=== PATIENT | male | born 1980 | race Caucasian/White ===

== ENCOUNTER 2018-11-27 22:52 | Inpatient (IN) | payer OTHER ==
[2018-11-27] MEDS ORDERED: Lorazepam 2 MG/ML VIAL ONE (23:18)
[2018-11-27 23:48] LABS: Prothrombin Time 13.3 SEC (12.0-14.7)
[2018-11-27 23:49] LABS: PTT 28.2 SEC (22.9-36.1)
[2018-11-28 00:04] LABS: ALT (SGPT) 208 U/L (8-55); AST (SGOT) 206 U/L (5-34); Albumin 3.8 g/dL (3.5-5.0); Alkaline Phosphatase 80 U/L (40-150); Anion Gap 21 mmol/L (10-20); BUN (Urea Nitrogen) 23 mg/dL (8.9-20.6); Bilirubin, Direct 4.7 mg/dL (0.1-0.3); Bilirubin, Total 6.1 mg/dL (0.2-1.2); Calc. Creatinine Clearance 0 mL/min (70-130); Carbon Dioxide 21 mmol/L (22-29); Chloride 77 mmol/L (98-107); Estimated GFR-MDRD Greater than 90; Glucose 104 mg/dL (70-105); Potassium 3.2 mmol/L (3.5-5.1); Protein, Total 5.9 g/dL (6.0-8.3)
--- NOTE | 2018-11-28 00:04 | CT ---
CT Chest WO Con History: Chest pain Comparison: None. Findings: Numerous small centrilobular nodules throughout the upper lobes. There are also some patchy groundglass opacities within the lingula and anterior segment left lower lobe. No pneumothorax. No significant effusion. Sternum and manubrium are intact. Spine is intact. Healing right lateral 6 rib fracture. Relatively acute-appearing right posterior ninth rib fracture with one cortex width displacement. Healing right posterior 10th rib fracture. Poorly healing right application assistant ior 11th rib fracture. Left posterior 11th rib fracture appears relatively acute. Cortical cysts left anterior third rib. Diffuse hepatic steatosis. There is contrast within the renal collecting systems. Abnormal thickening left adrenal gland. Impression: 1. Diffuse upper lobe predominant centrilobular small nodules as well as groundglass opacities within both lower lobes. Findings can be seen with hypersensitivity pneumonitis, respiratory bronchiolitis, and endobronchial spread of atypical infection. Bronchoscopy may be helpful. 2. Multiple bilateral rib fractures in different stages of healing. 3. Thickened left adrenal gland. Recommend correlation with recent abdominal imaging.
[2018-11-28 00:07] LABS: Sodium 116 mmol/L (136-145)
[2018-11-28] MEDS ORDERED: Ondansetron PF 4 MG/2 ML Vial ONE (00:52)
[2018-11-28] MEDS ORDERED: Morphine 4 MG/ML VIAL ONE (00:52)
[2018-11-28] MEDS ORDERED: cefTRIAXone\\ROCEPHIN 1 GM VIAL ONE (00:53)
[2018-11-28] MEDS ORDERED: Azithromycin 500 MG VIAL ONE (01:40)
[2018-11-28 02:14] LABS: Bilirubin 1+ (Negative); Blood, Urine Negative (Negative); Clarity Clear (Clear); Glucose, Urine (Dipstick) Normal (Negative); Leukocyte Negative Leu/uL (Negative); Nitrite Negative (Negative); Protein, Urine (Dipstick) 20 mg/dL (Neg-Trace)
--- NOTE | 2018-11-28 03:57 | HP ---
PRIMARY CARE PHYSICIAN: [facility] Call admission. REASON FOR ADMISSION: Transferred from [facility] after alcohol intoxication, alcohol withdrawal, aspiration pneumonia and electrolyte abnormality. HISTORY OF PRESENT ILLNESS: This is a 38-year-old male who has chronic alcoholism, who initially went to [facility] for alcohol intoxication/withdrawal symptoms. The patient reports that about 2 weeks ago, he had violent sneezing and coughing spell. At that time, he heard a popping sound from his ribcage. Since then, he was having chest wall pain as well as back pain that was the main reason he went to [facility]. Since then, the patient is also having intermittent cough. He was having low-grade fever. He continues to drink hard liquor every day. He has chronic alcohol abuse secondary to depression and lately his alcohol drinking significantly increased since he is from his . He denies any abdominal pain, melena, hematochezia, or hematemesis. He is feeling nausea and occasional vomiting. He denies any fall, injury, or trauma. He has never had any seizure. The patient was given 1 mg Ativan as well as banana bag at [facility] and subsequently, he was transferred here for further evaluation. In our emergency room, the patient had CT chest, which showed diffuse upper lobe predominant centrilobular small nodule as well as ground-glass opacity within both lower lobes suspicious for hypersensitivity pneumonitis versus aspiration as well as multiple bilateral rib fractures noted. The patient received Rocephin and azithromycin in our emergency room. He was given morphine and Ativan as well as IV fluid. His routine blood test showed severe hyponatremia and hypokalemia. PAST MEDICAL HISTORY: Chronic alcoholism. PAST PSYCHIATRIC HISTORY: Anxiety and depression. PAST SURGICAL HISTORY: Reviewed and negative. SOCIAL HISTORY: The patient is drinking more than 10 drinks per day. He drinks hard liquor. He also smokes half pack per day. He has alcoholism history for last 5 years. 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 He is from his recently. FAMILY HISTORY: No family history of coronary artery disease, stroke, or cancer. ALLERGIES: NO KNOWN DRUG ALLERGIES. CURRENT HOME MEDICATIONS: The patient was not taking any prescribed or non-prescribed medication. EMERGENCY ROOM COURSE: The patient was given banana bag at [facility]. He was given Ativan 1 mg and here in our emergency room, the patient received Rocephin, azithromycin, morphine, Ativan, and IV fluid. REVIEW OF SYSTEMS: CONSTITUTIONAL: Negative for weight loss or gain, ability to conduct usual activities. SKIN: Negative for rash, itching. EYES: Negative for double vision, pain. ENT/MOUTH: Negative for nose bleeding, neck stiffness, pain, tenderness. CARDIOVASCULAR: Negative for palpitations, dyspnea on exertion, orthopnea. RESPIRATORY: Negative for shortness of breath, wheezing, cough, hemoptysis, fever or night sweats. GASTROINTESTINAL: Negative for poor appetite, heartburn, vomiting, constipation , or diarrhea. GENITOURINARY: Negative for urgency, frequency, dysuria, nocturia. MUSCULOSKELETAL: Negative for pain, swelling. NEUROLOGIC/PSYCHIATRIC: Negative for anxiety, depression. ALLERGY/IMMUNOLOGIC: Negative for skin rash, bleeding tendency. Please see my HPI for pertinent positive and negative. All other review of systems reviewed and negative, except as mentioned in the HPI. PHYSICAL EXAMINATION: VITAL SIGNS: Currently, blood pressure 144/90, pulse 120, respiratory rate 26, temperature 98.9 and saturation 98% on room air. Weight 90.7 kg. GENERAL: The patient is currently alert, awake, in no obvious acute distress. HEENT: Head; normocephalic, atraumatic. Eyes; pupils are round, reactive to light. Extraocular muscle intake. ENT, dry mucous membrane. Lip cracked. No pharyngeal erythema. No exudate. NECK: Supple. No JVD. No thyromegaly. No carotid bruit. No meningeal signs of irritation. LUNGS: The patient does have reduced air entry basally. Unable to elicit any rales. No wheezing. No accessory muscles of respiration. The patient does have tenderness to bilateral chest wall. CARDIAC: S1-S2 regular, tachycardia. No murmur. No gallop. No rub. ABDOMEN: Soft. Mild discomfort noted in the right upper quadrant. No peritoneal sign. No ascites. No guarding. No rigidity. No rebound. No suprapubic discomfort. BACK: No point tenderness. No CVA tenderness. EXTREMITIES: Upper extremity, passive movement of all joints are normal. Lower extremity, no edema. Good distal pulsation. SKIN: No skin rash. HEMATOLOGICAL: No lymphadenopathy. NEUROLOGIC: Nonfocal examination. He moves all 4 limbs. His speech is clear. He does not have any motor weakness or sensory deficit. Cerebellar signs are currently normal. Mild tremor noted. PSYCHIATRIC: Normal affect. SIGNIFICANT LABORATORY DATA: waste elimination showing sinus tachycardia. [facility] record reviewed. INR 1.0. LFTs; bilirubin 6.1, direct bilirubin 4.7, protein 5.9, albumin 3.8, alkaline phosphatase 80, AST 206, ALT 208, potassium 3.2, chloride 77, carbon dioxide 21, anion gap 21, BUN 23, creatinine 0.76, glucose 104, calcium 8.0. Sodium 116. CT chest done, which is showing diffuse upper lobe predominant centrilobular small nodules as well as ground glass opacity within both lower lobes. Multiple bilateral rib fracture, weakened left adrenal gland. Serum osmolality 264. Urinalysis unremarkable. Urine sodium less than 20. Urine osmolality 734. ASSESSMENT AND PLAN: 1. Acute alcohol intoxication with history of chronic alcoholism. The patient has chronic alcoholism for last 5 years and he is a heavy drinker lately. He is at high risk for alcohol withdrawal syndrome. The patient is admitted for detoxication. We will use ASE protocol orders. We will use Ativan p.o. or IV as needed basis for his anxiety and restlessness. We will continue banana bag. We will provide supportive care and replace electrolyte accordingly. 2. Electrolyte abnormality. The patient has hyponatremia that is related with beer potomania. He has hypokalemia. We will also check magnesium and phosphorus tomorrow. We will replace potassium 10 mEq IV q.8 hourly. The patient is receiving banana bag and we will monitor sodium. Nephrology has been consulted. 3. Anion gap acidosis likely due to his alcohol abuse. 4. Abnormal LFTs, likely due to alcoholism. Ultrasound right upper quadrant will be obtained. 5. Anxiety and depression. We will start antidepression medication while in the hospital. 6. Abnormal CT chest finding. This patient has bibasilar ground-glass opacity and nodular opacity suspected for aspiration pneumonia. Hypersensitivity pneumonitis is possible. We will consult mixer operator helper hot metal for their opinion and we will treat with Zosyn q.6h. 7. Multiple bilateral rib fractures. Pain will be controlled with pain medication. Incentive spirometry advised. 8. Deep venous thrombosis prophylaxis with Lovenox 40 mg subcutaneous daily. If platelet count drops, then we will discontinue Lovenox. 9. Gastrointestinal prophylaxis, Pepcid 20 mg p.o. or IV b.i.d. CODE STATUS: The patient is full code. The patient's mother is surrogate decision maker. DISPOSITION PLAN: Based on clinical course, we are expecting the patient's stay in hospital more than 2 midnights. Plan of care discussed with the patient and mother in detail. Job ID: [id number] MTDD
[2018-11-28] MEDS ORDERED: Loperamide HCl 2 MG CAP PO PRN (04:05)
[2018-11-28] MEDS ORDERED: Ondansetron ODT 4 MG TAB PO PRN (04:05)
[2018-11-28] MEDS ORDERED: Ondansetron PF 4 MG/2 ML Vial IVP PRN (04:05)
[2018-11-28] MEDS ORDERED: Acetaminophen 325 MG TAB PO PRN (04:05)
[2018-11-28] MEDS ORDERED: Calcium Carbonate 500 MG ChewTAB PO PRN (04:05)
[2018-11-28] MEDS ORDERED: Lorazepam 2 MG/ML VIAL SLOW IVP PRN (04:05)
[2018-11-28] MEDS ORDERED: Senokot S 8.6-50 MG TAB PO PRN (04:05)
[2018-11-28] MEDS ORDERED: HYDROcodone/Acetaminophen 5/325 mg Tablet PO PRN (04:05)
[2018-11-28] MEDS ORDERED: Zolpidem Tartrate 5 MG TAB PO PRN (04:05)
[2018-11-28] MEDS ORDERED: Bisacodyl 10 MG SUPP PR PRN (04:05)
[2018-11-28] MEDS: Potassium Chloride 10 MEQ in Premix Bag 1 BAG IVPB SCH ×3 (04:24→22:39)
[2018-11-28] MEDS: Piperacillin/Tazobactam 3.375 GM in Sodium Chloride 0.9% 100 ML IVPB SCH ×4 (05:46→23:39)
[2018-11-28 05:59] VITALS: BMI 27.1
[2018-11-28] MEDS ORDERED: Multivitamins, Adult 10 ML, Folic Acid 1 MG, Thiamine HCl 100 MG in Dextrose 5 %-0.45 %... IV SCH (06:00)
--- NOTE | 2018-11-28 07:35 | ULT ---
PRELIMINARY REPORT/[facility]/AFTER HOURS PROCEDURE EXAM: US Abdomen Limited, Right Upper Quadrant EXAM DATE/TIME: 11/28/2018 2:18 AM CLINICAL HISTORY: 38 years old, male; Nausea and vomiting; Abdominal pain; Other: Epigastric pain that radiates to back TECHNIQUE: Imaging protocol: Real-time ultrasound of the abdomen with image documentation. Examination was focused on the right upper quadrant. COMPARISON: No relevant prior studies available. FINDINGS: Liver: Hepatic steatosis and hepatomegaly. Gallbladder: Gallbladder distended with sludge. No gallbladder wall thickening or pericholecystic fluid. Sonographic Michaud sign negative. Common bile duct: Normal. No stones. No dilation. Pancreas: Visualized pancreas is unremarkable. Right kidney: Normal. No mass. No hydronephrosis. IMPRESSION: 1. Hepatic steatosis and hepatomegaly. 2. Gallbladder distended with sludge. No evidence of cholecystitis. Thank you for allowing us to participate in the care of your patient. Dictated and Authenticated by: Reynold Pearson MD 11/28/2018 3:16 AM Central Time ([place] & [place]) FINAL REPORT RIGHT UPPER QUADRANT ULTRASOUND: 11/28/2018 2:20 a.m. FINDINGS: Hepatomegaly with coarse increased liver echogenicity, evidence for fatty change. Distended gallblad polina with sludge without overt gallstones. Normal common bile duct. Negative Michaud sign. This report is in agreement with the preliminary report. CODE QA Transcribed Date/Time: 11/28/2018 8:29 AM
[2018-11-28] MEDS: Famotidine 20 MG TAB PO SCH ×2 (08:21→22:00)
[2018-11-28] MEDS: Enoxaparin Sodium 40 MG/0.4 ML SYRINGE SC SCH (08:21)
[2018-11-28 10:31] LABS: ALT (SGPT) 198 U/L (8-55); AST (SGOT) 201 U/L (5-34); Albumin 3.6 g/dL (3.5-5.0); Alkaline Phosphatase 72 U/L (40-150); Anion Gap 17 mmol/L (10-20); BUN (Urea Nitrogen) 17 mg/dL (8.9-20.6); Bilirubin, Total 5.3 mg/dL (0.2-1.2); Calc. Creatinine Clearance 154 mL/min (70-130); Calcium 8.4 mg/dL (7.8-10.44); Carbon Dioxide 27 mmol/L (22-29); Chloride 79 mmol/L (98-107); Estimated GFR-MDRD Greater than 90; Globulin 1.9 g/dL (2.4-3.5); Glucose 126 mg/dL (70-105); Potassium 3.2 mmol/L (3.5-5.1); Protein, Total 5.5 g/dL (6.0-8.3); Sodium 120 mmol/L (136-145)
--- NOTE | 2018-11-28 10:52 | PDOC.HOSPP ---
- Subjective Encounter Date: 11/28/18 Encounter Time: 10:51 Subjective: Mr. Schulz was seen today in follow-up of alcohol intoxication and hyponatremia. He is awake and alert. He does not have any complaints. - Objective Vital Signs & Weight: Vital Signs (12 hours) Temp Pulse Resp BP Pulse Ox 11/28/18 07:59 98.2 F 110 H 20 135/78 96 11/28/18 04:05 98.1 F 107 H 20 149/85 H 98 Weight Weight 200 lb Result Diagrams: 11/28/18 09:55 Hospitalist ROS - Medication Medications: Active Medications Generic Name Dose Route Start Last Admin Trade Name Freq PRN Reason Stop Dose Admin Enoxaparin Sodium 40 mg 11/28/18 09:00 11/28/18 08:21 Lovenox SC 40 mg 0900 ELSA Administration Famotidine 20 mg 11/28/18 09:00 11/28/18 08:21 Pepcid PO 20 mg BID ELSA Administration Multivitamins 10 ml/ Folic 1,011.2 mls @ 125 mls/hr 11/28/18 06:00 11/28/18 05:49 Acid 1 mg/ Thiamine HCl 100 mg IV 1,011.2 mls / Dextrose/Sodium Chloride Q24HR ELSA Administration Piperacillin Sod/Tazobactam 100 mls @ 200 mls/hr 11/28/18 06:00 11/28/18 05: 46 Sod 3.375 gm/ Sodium Chloride IVPB 100 mls Q6HR ELSA Administration Potassium Chloride 10 meq/ 100 mls @ 100 mls/hr 11/28/18 06:00 11/28/18 04:24 Device IVPB 100 mls Q8HR ELSA Administration Lorazepam 1 mg 11/28/18 04:05 11/28/18 08:21 Ativan SLOW IVP 1 mg Q4H PRN Administration Anxiety/Agitation Sodium Chloride 10 ml 11/28/18 09:00 11/28/18 08:23 Flush - Normal Saline IVF 10 ml Q12HR ELSA Administration - Exam Eye: PERRL, scleral icterus Heart: RRR, no murmur, no gallops, no rubs, normal peripheral pulses Respiratory: CTAB, no wheezes, no rales, no ronchi, normal chest expansion, no tachypnea, normal percussion Gastrointestinal: soft, non-tender, non-distended, normal bowel sounds, no palpable masses, no hepatomegaly Extremities: no cyanosis, no clubbing, no edema Psychiatric: normal affect, normal behavior, A&O x 3 Hosp A/P (1) Hyponatremia Code(s): E87.1 - HYPO-OSMOLALITY AND HYPONATREMIA Status: Acute (2) Alcohol withdrawal Code(s): F10.239 - ALCOHOL DEPENDENCE WITH WITHDRAWAL, UNSPECIFIED Status: Acute (3) Alcohol abuse Code(s): F10.10 - ALCOHOL ABUSE, UNCOMPLICATED Status: Chronic (4) Alcoholic hepatitis Code(s): K70.10 - ALCOHOLIC HEPATITIS WITHOUT ASCITES Status: Acute (5) Hypokalemia Code(s): E87.6 - HYPOKALEMIA Status: Acute - Plan * Hyponatremia- likely due to beer potomania- continue Banana bag- serum, sodium is up to m120. * Nephrology has been consulted * Alcohol abuse- brief counseling was provided, and will consult case management to give him some information regarding outpatient programs * Withdrawal - mild for now- continue ASE protocol * Hypokalemia- nutritional- continue to replace
[2018-11-28] MEDS ORDERED: Potassium Chloride 20 MEQ TAB PO SCH (11:00)
--- NOTE | 2018-11-28 12:54 | CON ---
DATE OF CONSULTATION: 11/28/2018 CONSULTING PHYSICIAN: Hospitalist Group. REASON FOR CONSULTATION: Abnormal CT scan. HISTORY OF PRESENT ILLNESS: Mr. Schulz is a 38-year-old male who came in last night wanting to be detoxed from alcohol. He has basically missed the last 2 weeks of work because he has been on an alcohol binge. He has had episodes of vomiting. He has had low-grade fever for reasons that are unclear to me. He underwent a CT of the chest last night, which showed some upper lobe ground-glass opacities, which are very faint. The radiologist put in a differential diagnosis hypersensitive pneumonitis versus aspiration pneumonia. He also noted bilateral rib fractures in various stages of healing. The patient complains of some pain posteriorly. He does not know how he fractured the ribs. He says his best guess is he probably "sneezed." PAST MEDICAL HISTORY: Alcoholism. PAST SURGICAL HISTORY: Unremarkable. PSYCHIATRIC HISTORY: Remarkable for anxiety and depression. SOCIAL HISTORY: Drinks 5 to 10 drinks per day, usually vodka. Smokes three quarters pack of cigarettes per day. Does not use illicit drugs. 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 He is from his . FAMILY MEDICAL HISTORY: Unremarkable. ALLERGIES: NONE. MEDICATIONS: Prior to admission, no prescription medications. REVIEW OF SYSTEMS: Essentially negative, except for alcohol withdrawal symptoms and cough. PHYSICAL EXAMINATION: VITAL SIGNS: Temperature 98.2, pulse 110, respirations 20, O2 saturation 96% on room air, blood pressure 135/78. GENERAL: The patient looks chronically ill, but in no respiratory distress. HEENT: Sclerae appear icteric. Oropharynx clear. NECK: No adenopathy. No JVD. LUNGS: Slightly diminished breath sounds. There are some crackles in both bases. He has tenderness to palpation posteriorly left and right. CARDIAC: S1 and S2. Slightly tachycardic. ABDOMEN: Soft. I cannot palpate his liver. Spleen is not palpable. EXTREMITIES: No edema. LABORATORY DATA: Sodium 120, potassium 3.2, chloride 79, CO2 of 27, BUN 17, creatinine 0.8, glucose 126. Serum osmolality was 264, total bilirubin 5.3, AST 201, ALT 198, albumin 3.6. INR 1.0, PTT 28.2. Urinalysis demonstrated ketones. IMAGING STUDIES: CT was reviewed in detail. ASSESSMENT: 1. The ground-glass densities in the CT scan likely represent previous aspiration pneumonitis. I do not suspect this is hypersensitivity pneumonitis. 2. Rib fractures-the patient cannot explain these, but I would guess he has probably been falling. The fractures look old on CT scan. 3. Hyponatremia, hypokalemia. 4. Alcoholic hepatitis. RECOMMENDATIONS: 1. Manage alcohol withdrawal symptoms. 2. Continue antibiotics. Probably needs about 7 days of antibiotics between IV and oral. Zosyn is a reasonable choice and once he transitions to oral therapy, I would probably choose Augmentin or Omnicef. 3. Electrolyte correction. 4. Consider GI consultation given the degree of hyperbilirubinemia. Job ID: [id number]
[2018-11-28 15:26] LABS: Sodium 113 mmol/L (136-145)
[2018-11-28] MEDS: Nicotine 14 MG PATCH TOP SCH (17:25)
[2018-11-28] MEDS ORDERED: Tolvaptan 15 MG TAB PO SCH (21:00)
[2018-11-28] MEDS: Lorazepam 1 MG TAB PO PRN (22:00)
[2018-11-28] MEDS: Magnesium Oxide 400 MG TAB PO SCH (22:00)
[2018-11-28 23:16] LABS: Sodium 124 mmol/L (136-145)
--- NOTE | 2018-11-29 00:20 | CON ---
DATE OF CONSULTATION: REQUESTING PHYSICIAN: Humble Hale MD REASON FOR CONSULTATION: Hyponatremia and electrolyte derangements. IMPRESSION: 1. Hyponatremia. This is likely in the context of alcohol abuse in the way of beer potomania. However, this is likely going to be multifactorial. Cannot completely rule out syndrome of inappropriate antidiuretic hormone in addition to hypo-osmolar hyponatremia due to beer potomania. 2. Significant alcohol abuse. PLAN: 1. Urine chemistry that is highly suspicious of hypovolemic hyponatremia based significant urinary osmolarity raising the possibility of a component of SIADH and not really beer potomania. 2. Repeat the sodium level and if sodium is trending in the wrong direction, consider anti ADH treatment versus hypertonic saline and ICU transfer. 3. Further management will be dependent on the clinical course. HISTORY OF PRESENT ILLNESS: A 38-year-old gentleman with significant alcohol abuse who got transferred from [facility] due to significant electrolyte abnormalities including, but not limited to severe hyponatremia. The patient presented here with a sodium of 116. He is able to maintain well and articulate his history and complaints. Denies any vomiting, but the patient does have intermittent cough. The patient has been on significant alcohol binge lately. PAST MEDICAL HISTORY: Significant for alcohol abuse. 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 MEDICATIONS: Reviewed. ALLERGIES: NO KNOWN DRUG ALLERGIES. REVIEW OF SYSTEMS: As documented in the body of the history. All other systems were reviewed and found not to be significantly related to presenting illness. PHYSICAL EXAMINATION: VITAL SIGNS: The patient noted with the following vital signs. Afebrile, temperature 98.2, pulse 110, respiratory rate of 20, O2 saturations with a blood pressure of 135/78. HEENT: Unremarkable. CARDIOVASCULAR: First and second heart sounds were heard. RESPIRATORY: Clear to auscultation. DIGESTIVE: Revealed a benign abdomen with positive bowel sounds. EXTREMITIES: No peripheral edema. SKIN: No new gross rash. LYMPHATICS: No peripheral lymphadenopathy. SUMMARY: A 38-year-old gentleman with significant alcohol abuse problem who presented here with severe electrolyte derangement, especially hyponatremia. Thank you for this consultation. We will follow with you. Job ID: [id number]
[2018-11-29] MEDS: Piperacillin/Tazobactam 3.375 GM in Sodium Chloride 0.9% 100 ML IVPB SCH ×4 (05:15→23:25)
[2018-11-29 05:22] LABS: ALT (SGPT) 246 U/L (8-55); AST (SGOT) 272 U/L (5-34); Albumin 3.6 g/dL (3.5-5.0); Alkaline Phosphatase 89 U/L (40-150); Anion Gap 16 mmol/L (10-20); BUN (Urea Nitrogen) 9 mg/dL (8.9-20.6); Bilirubin, Total 3.2 mg/dL (0.2-1.2); Calc. Creatinine Clearance 188 mL/min (70-130); Calcium 8.9 mg/dL (7.8-10.44); Carbon Dioxide 30 mmol/L (22-29); Chloride 89 mmol/L (98-107); Estimated GFR-MDRD Greater than 90; Globulin 2.1 g/dL (2.4-3.5); Glucose 89 mg/dL (70-105); Magnesium 2.4 mg/dL (1.6-2.6); Protein, Total 5.7 g/dL (6.0-8.3); Sodium 132 mmol/L (136-145)
[2018-11-29 05:34] LABS: Phosphorus 1.5 mg/dL (2.3-4.7); Potassium 2.9 mmol/L (3.5-5.1)
[2018-11-29] MEDS: Potassium Chloride 10 MEQ in Premix Bag 1 BAG IVPB SCH ×2 (05:56→13:30)
[2018-11-29 06:04] LABS: #Lymphocytes 0.7 thou/uL (1.20-3.40); #Monocytes 0.5 thou/uL (0.11-0.59); #Neutrophils 2.9 thou/uL (1.40-6.50); %Eosinophils 0.4 % (0.0-10.0); %Lymphocytes 16.9 % (21.0-51.0); %Monocytes 11.1 % (0.0-10.0); %Neutrophils 71.6 % (42.0-75.0); Hemoglobin 9.8 g/dL (14.0-18.0); Mean Corpuscular HGB CONC 36.1 g/dL (32.0-36.0); Mean Corpuscular Hemoglobin 34.9 pg (27.0-31.0); Mean Corpuscular Volume 96.9 fL (78.0-98.0); Mean Platelet Volume 8.5 fL (7.4-10.4); Platelet Count 46 thou/uL (130-400); Red Blood Cell (RBC) Count 2.81 mill/uL (4.70-6.10)
[2018-11-29] MEDS ORDERED: Potassium Phosphate 15 MMOL in Sodium Chloride 0.9% 250 ML 250 ML IVPB SCH (07:30)
[2018-11-29] MEDS: Potassium Chloride 40 MEQ in Dextrose 5% in Water 1,000 ML IV SCH ×2 (08:23→19:01)
[2018-11-29] MEDS: Enoxaparin Sodium 40 MG/0.4 ML SYRINGE SC SCH (08:25)
[2018-11-29] MEDS: Famotidine 20 MG TAB PO SCH ×2 (08:25→20:15)
[2018-11-29] MEDS: Magnesium Oxide 400 MG TAB PO SCH ×2 (08:25→20:15)
--- NOTE | 2018-11-29 09:36 | PRG ---
DATE OF SERVICE: 11/29/2018 SUBJECTIVE: He is up and around, feels better today. He has no complaints. OBJECTIVE: VITAL SIGNS: Temperature 99.6, pulse 118, respirations 20, O2 saturation 93% on room air, and blood pressure 126/77. HEENT: Unremarkable. NECK: No JVD. CHEST: Fairly clear anteriorly. CARDIAC: S1 and S2. Regular. ABDOMEN: Soft. EXTREMITIES: No edema. SKIN: Still has generalized jaundice. LABORATORY DATA: White blood cell count 4, hematocrit 27.2, and platelet count 46. Sodium 132, potassium 2.9, chloride 89, CO2 of 30, BUN 9, creatinine 0.6, glucose 89, AST 272, ALT 246, and total bilirubin 3.2. ASSESSMENT: 1. Probable aspiration pneumonia. 2. Alcoholic hepatitis. 3. Hypokalemia. 4. Thrombocytopenia. PLAN: Recommend continue antibiotics. Change to Augmentin at the time of discharge. Treat for total of 7 to 10 days. Further issues per Internal Medicine and Nephrology. Job ID: [id number]
[2018-11-29 10:56] LABS: Anion Gap 12 mmol/L (10-20); BUN (Urea Nitrogen) 10 mg/dL (8.9-20.6); Calc. Creatinine Clearance 179 mL/min (70-130); Carbon Dioxide 34 mmol/L (22-29); Chloride 88 mmol/L (98-107); Estimated GFR-MDRD Greater than 90; Glucose 145 mg/dL (70-105); Potassium 3.1 mmol/L (3.5-5.1); Sodium 131 mmol/L (136-145)
[2018-11-29] MEDS: Lorazepam 1 MG TAB PO PRN (14:36)
--- NOTE | 2018-11-29 17:17 | PDOC.HOSPP ---
- Subjective Encounter Date: 11/29/18 Encounter Time: 17:13 Subjective: Mr. Schulz was seen today in follow-up of alcohol withdrawal and hyponatremia. He does not have any complaints today. He is feeling much better. - Objective Vital Signs & Weight: Vital Signs (12 hours) Temp Pulse Resp BP BP Pulse Ox 11/29/18 16:00 98.6 F 93 16 130/78 93 L 11/29/18 11:38 132/72 11/29/18 11:36 98.5 F 109 H 16 132/72 97 11/29/18 08:00 99.0 F 112 H 18 119/69 119/69 95 Weight Weight 195 lb 14.4 oz I&O: 11/28/18 11/29/18 11/30/18 06:59 06:59 06:59 Intake Total 2380 240 Output Total 2200 Balance 180 240 Result Diagrams: 11/29/18 04:34 11/29/18 10:24 Hospitalist ROS - Medication Medications: Active Medications Generic Name Dose Route Start Last Admin Trade Name Lanceq PRN Reason Stop Dose Admin Famotidine 20 mg 11/28/18 09:00 11/29/18 08:25 Pepcid PO 20 mg BID ELSA Administration Piperacillin Sod/Tazobactam 100 mls @ 200 mls/hr 11/28/18 06:00 11/29/18 13: 34 Sod 3.375 gm/ Sodium Chloride IVPB 100 mls Q6HR ELSA Administration Potassium Chloride 40 meq/ 1,020 mls @ 100 mls/hr 11/29/18 06:15 11/29/18 08: 23 Dextrose/Water IV 1,020 mls .[id number] ELSA Administration Lorazepam 1 mg 11/28/18 04:05 11/28/18 08:21 Ativan SLOW IVP 1 mg Q4H PRN Administration Anxiety/Agitation Lorazepam 1 mg 11/28/18 04:05 11/29/18 14:36 Ativan PO 1 mg Q4H PRN Administration Anxiety/Agitation Magnesium Oxide 400 mg 11/28/18 21:00 11/29/18 08:25 Magnesium Oxide PO 400 mg BID ELSA Administration Nicotine 14 mg 11/28/18 17:00 11/28/18 17:25 Nicoderm Patch TOP 14 mg Q24HR ELSA Administration Sodium Chloride 10 ml 11/28/18 09:00 11/29/18 08:25 Flush - Normal Saline IVF 10 ml Q12HR ELSA Administration - Exam Eye: PERRL, scleral icterus Heart: RRR, no murmur, no gallops, no rubs, normal peripheral pulses Respiratory: CTAB, no wheezes, no rales, no ronchi, normal chest expansion Gastrointestinal: soft, non-tender, non-distended, normal bowel sounds, no palpable masses, no hepatomegaly, no splenomegaly Extremities: no cyanosis, no clubbing, 1+ LE edema Hosp A/P (1) Hyponatremia Code(s): E87.1 - HYPO-OSMOLALITY AND HYPONATREMIA Status: Acute (2) Alcohol withdrawal Code(s): F10.239 - ALCOHOL DEPENDENCE WITH WITHDRAWAL, UNSPECIFIED Status: Acute (3) Alcohol abuse Code(s): F10.10 - ALCOHOL ABUSE, UNCOMPLICATED Status: Chronic (4) Alcoholic hepatitis Code(s): K70.10 - ALCOHOLIC HEPATITIS WITHOUT ASCITES Status: Acute (5) Hypokalemia Code(s): E87.6 - HYPOKALEMIA Status: Acute - Plan * Hyponatremia- improved after Tolvaptan- * Alcohol abuse- continue to addiction treatment counselor- discussed with case management- he will need to check with his insurance carrier to determine which programs he is eligible for * Withdrawal - mild for now- continue ASE protocol * Hypokalemia- nutritional- continue to replace * Aspiration pneumonia- Continue Zosyn, and will discharge on Augmentin * Anticipate home tomorrow
[2018-11-29] MEDS: Nicotine 14 MG PATCH TOP SCH ×2 (17:51→19:01)
--- NOTE | 2018-11-29 23:29 | PRG ---
DATE OF SERVICE: 11/29/2018 SUBJECTIVE: The patient was seen and examined today, seems to be doing much better, noted with the following vital signs. OBJECTIVE: VITAL SIGNS: Afebrile, temperature 98.5, pulse 93, respiratory rate of 16, and O2 saturation of 93% with blood pressure of 130/78. HEENT: Unremarkable. CARDIOVASCULAR SYSTEM: First and second heart sounds were heard. RESPIRATORY SYSTEM: Clear to auscultation. DIGESTIVE SYSTEM: Revealed a benign abdomen with positive bowel sounds. EXTREMITIES: No peripheral edema. SKIN: No new gross rash. LYMPHATICS: No peripheral lymphadenopathy. LABORATORY INVESTIGATION: Showed a sodium of 132 and potassium 2.9. IMPRESSION: 1. Hyponatremia in the context of syndrome of inappropriate antidiuretic hormone secretion with rapid sodium correction. 2. Hypokalemia. 3. Alcohol abuse. Isotonic feed was started once the patient's sodium was noted to have risen very fast. The patient continued on 5% dextrose water. 4. Counseling the patient on the need to discontinue alcohol usage. 5. Further management to be dependent on the clinical course. Job ID: [id number]
[2018-11-30] MEDS: Piperacillin/Tazobactam 3.375 GM in Sodium Chloride 0.9% 100 ML IVPB SCH ×2 (06:51→12:09)
[2018-11-30] MEDS ORDERED: Potassium Chloride 20 MEQ TAB PO SCH (09:00)
[2018-11-30 09:33] LABS: Anion Gap 13 mmol/L (10-20); BUN (Urea Nitrogen) 7 mg/dL (8.9-20.6); Calc. Creatinine Clearance 179 mL/min (70-130); Carbon Dioxide 29 mmol/L (22-29); Chloride 89 mmol/L (98-107); Estimated GFR-MDRD Greater than 90; Glucose 111 mg/dL (70-105); Potassium 3.1 mmol/L (3.5-5.1); Sodium 128 mmol/L (136-145)
[2018-11-30] MEDS: Lorazepam 1 MG TAB PO PRN (09:42)
[2018-11-30] MEDS: Famotidine 20 MG TAB PO SCH (09:43)
[2018-11-30] MEDS: Magnesium Oxide 400 MG TAB PO SCH (09:43)
--- NOTE | 2018-11-30 11:56 | PDOC.HOSPP ---
- Subjective Encounter Date: 11/30/18 Encounter Time: 10:40 Subjective: Mr. Schulz was seen today in follow-up of Alcohol withdrawal, and hyponatremia. He does not have any complaints. - Objective Vital Signs & Weight: Vital Signs (12 hours) Temp Pulse Resp BP BP Pulse Ox 11/30/18 08:00 98.4 F 104 H 20 118/68 95 11/30/18 04:00 98.5 F 103 H 16 118/72 98 11/30/18 00:00 100 16 115/63 115/69 95 Weight Weight 196 lb I&O: 11/29/18 11/30/18 12/01/18 06:59 06:59 06:59 Intake Total 2380 2063 240 Output Total 2200 500 Balance 180 1563 240 Result Diagrams: 11/29/18 04:34 11/30/18 09:00 Hospitalist ROS - Medication Medications: Active Medications Generic Name Dose Route Start Last Admin Trade Name Freq PRN Reason Stop Dose Admin Famotidine 20 mg 11/28/18 09:00 11/30/18 09:43 Pepcid PO 20 mg BID ELSA Administration Piperacillin Sod/Tazobactam 100 mls @ 200 mls/hr 11/28/18 06:00 11/30/18 06: 51 Sod 3.375 gm/ Sodium Chloride IVPB 100 mls Q6HR ELSA Administration Lorazepam 1 mg 11/28/18 04:05 11/28/18 08:21 Ativan SLOW IVP 1 mg Q4H PRN Administration Anxiety/Agitation Lorazepam 1 mg 11/28/18 04:05 11/30/18 09:42 Ativan PO 1 mg Q4H PRN Administration Anxiety/Agitation Magnesium Oxide 400 mg 11/28/18 21:00 11/30/18 09:43 Magnesium Oxide PO 400 mg BID ELSA Administration Nicotine 14 mg 11/28/18 17:00 11/29/18 19:01 Nicoderm Patch TOP 14 mg Q24HR ELSA Administration Sodium Chloride 10 ml 11/28/18 09:00 11/30/18 09:43 Flush - Normal Saline IVF 10 ml Q12HR ELSA Administration Zolpidem Tartrate 5 mg 11/28/18 04:05 11/29/18 22:27 Ambien PO 5 mg HSPRN PRN Administration Insomnia - Exam Eye: PERRL, anicteric sclera Heart: RRR, no murmur, no gallops, no rubs, normal peripheral pulses Respiratory: CTAB, no wheezes, no rales, no ronchi, normal chest expansion, no tachypnea, normal percussion Gastrointestinal: soft, non-tender, non-distended, normal bowel sounds Extremities: no cyanosis, no clubbing, no edema Hosp A/P (1) Hyponatremia Code(s): E87.1 - HYPO-OSMOLALITY AND HYPONATREMIA Status: Acute (2) Alcohol withdrawal Code(s): F10.239 - ALCOHOL DEPENDENCE WITH WITHDRAWAL, UNSPECIFIED Status: Acute (3) Alcohol abuse Code(s): F10.10 - ALCOHOL ABUSE, UNCOMPLICATED Status: Chronic (4) Alcoholic hepatitis Code(s): K70.10 - ALCOHOLIC HEPATITIS WITHOUT ASCITES Status: Acute (5) Hypokalemia Code(s): E87.6 - HYPOKALEMIA Status: Acute - Plan * Hyponatremia-his serum sodium has remained stable * Hypokalemia- continue to replace * 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 His vital signs have been stable, with the exception of some mild tachycardia- * Aspiration pneumonia- stable * Home today
[2018-11-30 12:13] VITALS: BP 136/78; TEMP 98.9
--- NOTE | 2018-11-30 18:11 | PRG ---
DATE OF SERVICE: 11/30/2018 SUBJECTIVE: The patient is seen and examined, doing much better, noted with the following vital signs. OBJECTIVE: VITAL SIGNS: Afebrile, temperature 98.9, pulse 104, respiratory rate of 20, O2 saturations of 95%, with blood pressure of 118/68. HEENT: Unremarkable. CARDIOVASCULAR SYSTEM: First and second heart sounds were heard. RESPIRATORY SYSTEM: Clear to auscultation. DIGESTIVE SYSTEM: Revealed a benign abdomen with positive bowel sounds. EXTREMITIES: No peripheral edema. SKIN: No new gross rash. LYMPHATICS: No peripheral lymphadenopathy. LABORATORY INVESTIGATION: Showed a sodium of 128, potassium 3.1. IMPRESSION: 1. Hyponatremia, multifactorial including syndrome of inappropriate antidiuretic hormone secretion and possible beer potomania. 2. Hypokalemia. PLAN: 1. Replete potassium. 2. The patient may benefit from another anti-ADH treatment. 3. The patient counseled extensively on the need to discontinue alcohol abuse. 4. The patient to stay on increased protein intake animal meat. 5. Outpatient Nephrology followup status post discharge strongly recommended. Job ID: [id number]
--- NOTE | 2018-12-01 06:01 | DIS ---
DATE OF ADMISSION: 11/28/2018 DATE OF DISCHARGE: 11/30/2018 PRIMARY CARE PHYSICIAN: The patient does not currently have a primary care physician. DISCHARGE DISPOSITION: Home. PRIMARY DISCHARGE DIAGNOSES: 1. Hyponatremia. 2. Alcohol abuse. 3. Alcoholic hepatitis. 4. History of anxiety and depression. 5. Aspiration pneumonia. DISCHARGE MEDICATIONS: Include, 1. Thiamine 100 mg daily. 2. Ativan taper. 3. Folic acid 1 mg daily. 4. Augmentin 875 mg one p.o. twice daily for 7 days. PROCEDURES DONE DURING THIS ADMISSION: The patient had a CT scan of the chest showing diffuse upper lobe nodules and ground-glass opacities in both lower lobes. The patient had an abdominal ultrasound in which, there was demonstration of hepatomegaly with increased liver echogenicity and evidence for fatty change. HOSPITAL COURSE: Mr. Schulz is a pleasant 38-year-old gentleman who was admitted to the hospital from the [facility] Emergency Room due to concerns for alcohol intoxication as well as withdrawal symptoms. He does admit to having some coughing off and on. He was admitted and started on the ASE protocol. He was also found to have a dangerously low sodium level of 116 on admission. He was seen by Nephrology. His sodium was corrected. 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 He responded to a single dose of tolvaptan. He had no neurological sequela during the correction of his sodium. He was counseled extensively on the dangers of alcohol abuse and the need for abstinence, also guidance with regard to finding outpatient help was get given to both he and his mother who stayed at his bedside throughout most of his hospitalization. He was also treated for an aspiration pneumonia and seen by Pulmonology. Once he was clinically stable, he was able to be discharged home with close outpatient followup. Warning signs to return to the hospital were given to the patient at the time of discharge. Job ID: [id number]
== END 2018-11-30 13:44 | disposition home or self-care (01) | DRG 896 ==
LOC: ERS 22:52 → 2NO 11-28 03:54
PROVIDERS: ADMIT Internal Medicine; ATTEND Internal Medicine
PROC: HZ2ZZZZ Detoxification Services for Substance Abuse Treatment (ICD-10-PCS; principal; 2018-11-28)
DX: F10.239 Alcohol dependence with withdrawal, unspecified (principal); J69.0 Pneumonitis due to inhalation of food and vomit; E87.2 Acidosis; E22.2 Syndrome of inappropriate secretion of antidiuretic hormone; F32.9 Major depressive disorder, single episode, unspecified; F10.20 Alcohol dependence, uncomplicated; F17.200 Nicotine dependence, unspecified, uncomplicated; F41.9 Anxiety disorder, unspecified; K70.10 Alcoholic hepatitis without ascites; E87.6 Hypokalemia; D69.6 Thrombocytopenia, unspecified
CPT/HCPCS: 36415; 71250; 76705; 80048; 80053; 80076; 81003; 83735; 83930; 83935; 84100; 84300; 85025; 85610; 85730; 87040; 96361; 96365; 96366; 96367; 96375; J0456; J0696; J1650; J2060; J2270; J2405; J2543; J3411; J3480; J3490; J7042; J7050; J7070

== ENCOUNTER 2019-02-12 19:00 | Outpatient (CLI) | payer OTHER | END 2019-02-12 19:01 | disposition home or self-care (01) | LOC: SLEEPLAB 19:00 | PROVIDERS: ATTEND Family Medicine | DX: G47.33 Obstructive sleep apnea (adult) (pediatric) (principal); R53.83 Other fatigue; R06.83 Snoring; R09.02 Hypoxemia | CPT/HCPCS: 95806 ==

== ENCOUNTER 2019-03-15 20:30 | Outpatient (CLI) | payer OTHER | END 2019-03-15 20:31 | disposition home or self-care (01) | LOC: SLEEPLAB 20:30 | PROVIDERS: ATTEND Family Medicine | DX: G47.33 Obstructive sleep apnea (adult) (pediatric) (principal); R06.83 Snoring; R09.89 Other specified symptoms and signs involving the circulatory and respiratory systems; R09.02 Hypoxemia | CPT/HCPCS: 95811 ==